=== PATIENT | male | born 1995 | race Caucasian/White ===

== ENCOUNTER 2024-06-10 13:30 | Emergency (ER) | payer OTHER ==
[2024-06-10] MEDS: Naproxen 500 MG Tab PO ONE (15:00)
== END 2024-06-10 17:50 | disposition home or self-care (01) ==
LOC: JD.ED 13:30
DX: S49.92XA Unspecified injury of left shoulder and upper arm, initial encounter (principal); W19.XXXA Unspecified fall, initial encounter
CPT/HCPCS: 71045; 71045-26; 73030-26-LT; 73030-LT; 99283